=== PATIENT | female | born 1985 | race Caucasian/White ===

== ENCOUNTER 2019-02-11 09:14 | Inpatient (IN) | payer OTHER ==
[2019-02-11 09:45] VITALS: BMI 24.7
[2019-02-11] MEDS ORDERED: HYDROcodone/Acetaminophen 5/325 mg Tablet PO PRN ×2 (09:51)
[2019-02-11] MEDS ORDERED: Promethazine HCl 25 MG/ML VIAL IM PRN ×2 (09:51→16:00)
[2019-02-11] MEDS ORDERED: NS / Oxytocin 40 units/1000ml 1,000 ML IV PRN (09:51)
[2019-02-11] MEDS ORDERED: Butorphanol Tartrate 1 MG/ML VIAL SLOW IVP PRN (09:51)
[2019-02-11] MEDS ORDERED: Acetaminophen 500 MG TAB PO PRN (09:51)
[2019-02-11] MEDS ORDERED: Ibuprofen 800 MG TAB PO PRN (09:51)
[2019-02-11] MEDS ORDERED: Diphenoxylate HCl/Atropine Tablet PO PRN ×2 (09:51)
[2019-02-11] MEDS ORDERED: Docusate 100 MG CAP PO PRN (09:51)
[2019-02-11] MEDS ORDERED: Misoprostol 200 MCG TAB PR PRN (09:51)
[2019-02-11] MEDS ORDERED: Ondansetron PF 4 MG/2 ML Vial IVP PRN ×3 (09:51→18:20)
[2019-02-11] MEDS ORDERED: Lidocaine 1% (PF) 30 ML VIAL SC PRN (09:51)
[2019-02-11] MEDS ORDERED: Lactated Ringer's 1,000 ML IV SCH (10:00)
[2019-02-11 10:37] LABS: Hemoglobin 11.8 g/dL (12.0-16.0); Mean Corpuscular HGB CONC 34.4 g/dL (32.0-36.0); Mean Corpuscular Hemoglobin 30.4 pg (27.0-31.0); Mean Corpuscular Volume 88.2 fL (78.0-98.0); Mean Platelet Volume 7.4 fL (7.4-10.4); Platelet Count 235 thou/uL (130-400); RBC Distribution Width 12.1 % (11.5-14.5); Red Blood Cell (RBC) Count 3.88 mill/uL (4.20-5.40); White Blood Cell (WBC) Count 14.1 thou/uL (4.8-10.8)
[2019-02-11] MEDS ORDERED: Fentanyl 4 mcg/Bup 0.1% Cadd 100 ML ONE (10:38)
[2019-02-11] MEDS ORDERED: Fentanyl 100 MCG/2 ML VIAL ONE (10:56)
[2019-02-11 11:08] LABS: Syphilis Antibody Nonreactive (Nonreactive); Syphilis Antibody Index 0.03 S/CO (<1.00 Non-Reactive)
[2019-02-11] MEDS ORDERED: Bupivacaine 0.25% HCL 30 ML VIAL ONE (11:11)
[2019-02-11] MEDS ORDERED: Fentanyl 100 MCG/2 ML VIAL EPIDURAL ONE (11:15)
[2019-02-11 12:59] LABS: HBSAg Index 0.32 S/CO (0-0.99); Hep B Surf Ag Non-Reactive S/CO (NonReactive)
[2019-02-11] MEDS ORDERED: Lidocaine 1% (PF) 30 ML VIAL ONE (14:50)
[2019-02-11] MEDS ORDERED: NS / Oxytocin 40 units/1000ml 1,000 ML ONE (14:50)
[2019-02-11] MEDS ORDERED: Fentanyl 4 mcg/Bupivacaine 0.1% Cassette 100 ML EPIDURAL SCH (16:00)
[2019-02-11] MEDS ORDERED: Naloxone HCl 0.4 mg/ml Vial IVP PRN ×2 (16:00)
[2019-02-11] MEDS ORDERED: diphenhydrAMINE 50 MG/ML VIAL IVP PRN (16:00)
[2019-02-11] MEDS ORDERED: ePHEDrine/0.9% NaCl/PF SYRINGE 50 mg/10 ml SLOW IVP PRN (16:00)
[2019-02-11] MEDS ORDERED: Lactated Ringer's 500 ML IV PRN (16:00)
[2019-02-11] MEDS ORDERED: Eucerin (Mineral Oil/Petrolatum,White) 30 gm Jar TOP PRN (16:00)
[2019-02-11] MEDS ORDERED: Acetaminophen 325 MG TAB PO PRN (16:00)
[2019-02-11] MEDS ORDERED: Communication Order-Pharmacy FS SCH (16:00)
[2019-02-11] MEDS ORDERED: Lidocaine 1.5%/Epinephrine 1:200,000 5 ML AMPUL IJ ONE ×2 (16:39)
[2019-02-11] MEDS ORDERED: Acetaminophen/Codeine 30-300mg Tablet PO PRN (18:20)
[2019-02-11] MEDS ORDERED: Benzocaine-Menthol 82.5 ML CAN TOP PRN (18:20)
[2019-02-11] MEDS ORDERED: Bisacodyl 10 MG SUPP PR PRN (18:20)
[2019-02-11] MEDS ORDERED: Lanolin Ointment 7 GM TUBE TOP PRN (18:20)
[2019-02-11] MEDS ORDERED: diphenhydrAMINE 25 MG CAP PO PRN (18:20)
[2019-02-11] MEDS ORDERED: Zolpidem Tartrate 5 MG TAB PO PRN (18:20)
[2019-02-11] MEDS ORDERED: Milk Of Magnesia 30 ML UDCUP PO PRN (18:20)
[2019-02-11] MEDS ORDERED: Adacel (T-DAP) 0.5 ML SYRINGE IM ONE (18:20)
[2019-02-11] MEDS ORDERED: NS / Oxytocin 40 units/1000ml 1,000 ML IV SCH (18:30)
[2019-02-11] MEDS: Ibuprofen 800 MG TAB PO SCH (23:41)
[2019-02-11] MEDS: Docusate Calcium (SURFAK) 240 MG CAP PO SCH (23:42)
[2019-02-12] MEDS: Ibuprofen 800 MG TAB PO SCH ×3 (06:20→22:01)
[2019-02-12 06:59] LABS: Hemoglobin 9.6 g/dL (12.0-16.0); Mean Corpuscular Hemoglobin 29.7 pg (27.0-31.0); Mean Platelet Volume 7.1 fL (7.4-10.4); Platelet Count 200 thou/uL (130-400); RBC Distribution Width 12.3 % (11.5-14.5); Red Blood Cell (RBC) Count 3.23 mill/uL (4.20-5.40)
[2019-02-12] MEDS: Prenatal Vitamin 1 TAB PO SCH (09:13)
[2019-02-12] MEDS: Docusate Calcium (SURFAK) 240 MG CAP PO SCH ×2 (09:13→22:01)
[2019-02-12] MEDS: Ferrous Sulfate 325 MG TAB PO SCH ×2 (09:13→22:00)
[2019-02-12] MEDS: Acetaminophen/Codeine 30-300mg Tablet PO PRN (22:05)
[2019-02-13] MEDS: Ibuprofen 800 MG TAB PO SCH ×2 (06:13→13:45)
[2019-02-13 08:53] VITALS: BP 95/52; TEMP 98.6
[2019-02-13] MEDS: Ferrous Sulfate 325 MG TAB PO SCH (11:02)
[2019-02-13] MEDS: Prenatal Vitamin 1 TAB PO SCH (11:03)
[2019-02-13] MEDS: Docusate Calcium (SURFAK) 240 MG CAP PO SCH (11:03)
[2019-02-13] MEDS: Acetaminophen/Codeine 30-300mg Tablet PO PRN (11:04)
== END 2019-02-13 15:45 | disposition home or self-care (01) | DRG 807 ==
LOC: L&D 09:14 → 3SW 21:48
PROVIDERS: ADMIT Obstetrics & Gynecology; ATTEND Obstetrics & Gynecology
PROC: 0W8NXZZ Division of Female Perineum, External Approach (ICD-10-PCS; principal; 2019-02-11)
PROC: 10E0XZZ Delivery of Products of Conception, External Approach (ICD-10-PCS; 2019-02-11)
PROC: 0KQM0ZZ Repair Perineum Muscle, Open Approach (ICD-10-PCS; 2019-02-11)
PROC: 10907ZC Drainage of Amniotic Fluid, Therapeutic from Products of Conception, Via Natural or Artificial Opening (ICD-10-PCS; 2019-02-11)
PROC: 3E0P7VZ Introduction of Hormone into Female Reproductive, Via Natural or Artificial Opening (ICD-10-PCS; 2019-02-11)
PROC: 3E033VJ Introduction of Other Hormone into Peripheral Vein, Percutaneous Approach (ICD-10-PCS; 2019-02-11)
DX: O70.1 Second degree perineal laceration during delivery (principal); Z37.0 Single live birth; Z3A.38 38 weeks gestation of pregnancy
CPT/HCPCS: 36415; 51702; 85027; 86780; 86850; 86900; 86901; 87340; 90715; J2001; J3010; J3490; S0020

== ENCOUNTER 2023-01-23 08:54 | Outpatient (CLI) | payer BC | END 2023-01-23 08:55 | disposition home or self-care (01) | LOC: BICULT 08:54 | PROVIDERS: ATTEND Internal Medicine Gastroenterology | DX: R74.01 Elevation of levels of liver transaminase levels (principal); R19.8 Other specified symptoms and signs involving the digestive system and abdomen | CPT/HCPCS: 76700 ==

== ENCOUNTER 2025-07-13 09:52 | Outpatient (CLI) | payer BC | END 2025-07-13 09:53 | disposition home or self-care (01) | LOC: BICMAMMO 09:52 | PROVIDERS: ATTEND Obstetrics & Gynecology | DX: Z12.31 Encounter for screening mammogram for malignant neoplasm of breast (principal); N64.89 Other specified disorders of breast | CPT/HCPCS: 77063; 77067 ==